=== PATIENT | male | born 1950 | race American Indian/Alaskan Native ===

== ENCOUNTER 2016-05-05 20:17 | Inpatient (IN) | payer MEDICARE, OTHER ==
[2016-05-05] MEDS ORDERED: TYLENOL PO ONE (20:47)
--- NOTE | 2016-05-05 20:47 | Emergency Department Report ---
Chief Complaint: Dyspnea/Respdistress Stated Complaint: WEAKNESS/SOB Time Seen by Provider: 05/05/16 20:46 - HPI History of Present Illness: 65 year old male presents with cough for 2 weeks. states now has a fever and doesnt feel well. denies cp or SOB. - Exam Vital Signs: Vital Signs 05/05/16 20:39 Temperature 102.3 F H Pulse Rate 112 H Respiratory 24 Rate Blood Pressure 117/76 O2 Sat by Pulse 92 Oximetry Physical Exam: patient appears distressed tachycardic and elevated temp lungs CTA RRR MSE screening note: Focused history and physical exam performed. Due to findings the following was ordered: ED Disposition for MSE Condition: Stable
[2016-05-05 21:32] LABS: Hematocrit 30.2 % (35.5-45.6); Hemoglobin 9.8 gm/dl (11.8-15.2); Mean Corpuscular HGB Conc 32 % (32-34); Mean Corpuscular Volume 80 fl (84-94); Platelet Count 453 K/mm3 (140-440); Red Blood Count 3.79 M/mm3 (3.65-5.03); Red Cell Distribution Width 16.3 % (13.2-15.2); White Blood Count 18.4 K/mm3 (4.5-11.0)
[2016-05-05 21:43] LABS: Mean Corpuscular Hemoglobin 26 pg (28-32)
[2016-05-05 21:49] LABS: Alanine Aminotransferase 32 units/L (7-56); Albumin 3.1 g/dL (3.9-5); Albumin/Globulin Ratio 0.9 %; Alkaline Phosphatase 99 units/L (35-129); Anion Gap 21 mmol/L; BUN/Creatinine Ratio 15.83; Bilirubin,Total 0.9 mg/dL (0.1-1.2); Blood Urea Nitrogen 19 mg/dL (9-20); Calcium 8.6 mg/dL (8.4-10.2); Carbon Dioxide 20 mmol/L (22-30); Chloride 96.2 mmol/L (98-107); Glucose 161 mg/dL (75-100); Potassium 4.2 mmol/L (3.6-5.0); Sodium 133 mmol/L (137-145); Total Protein 6.7 g/dL (6.3-8.2)
[2016-05-05 22:17] LABS: Basophils % (Manual) 0 % (0.0-1.8); Blastocytes % (Manual) 0 %; Eosinophils % (Manual) 0 % (0.0-4.3)
[2016-05-05 22:18] LABS: Elliptocytes Rare; Microcytosis Rare; Platelet Estimate Consistent w Auto
[2016-05-05 22:19] LABS: Anisocytosis 1+; Diff Status Complete
--- NOTE | 2016-05-06 09:19 | XRay Report ---
PA and lateral chest: Comparison is made to a prior exam on March 26, 2016. There are new bibasilar opacities with blunting of both costophrenic angles on the current study. The heart is probably normal in size. There is no overt vascular congestion. Impression: Nonspecific bilateral pleural effusions and probable underlying pulmonary atelectasis or consolidation.
[2016-05-06] MEDS ORDERED: LEVAQUIN PO ONE (09:51)
[2016-05-06] MEDS ORDERED: TESSALON PERLES PO ONE (09:52)
--- NOTE | 2016-05-06 09:55 | Emergency Department Report ---
HPI - General Chief Complaint: Dyspnea/Respdistress Time Seen by Provider: 05/06/16 09:49 - HPI HPI: The patient is a 65-year-old male who presents for evaluation of cough and ear filling. The patient reports fever, an intermittently productive cough of clear yellow sputum, moderate severity, associated with moderate in severity dyspnea and generalized weakness, also moderate in severity, both exacerbated with attempted physical activity, improved with rest, and present for the past one day. The patient denies headache, neck pain, chest pain, syncope, hemoptysis, unilateral leg swelling, recent immobilization, history of DVT or PE , recent cancer. ED Past Medical Hx - Past Medical History Hx Hypertension: Yes Hx Diabetes: Yes Hx Arthritis: No - Surgical History Past Surgical History?: No - Social History Smoking Status: Never Smoker Substance Use Type: None - Medications Home Medications: Home Medications Medication Instructions Recorded Confirmed Last Taken Type Glimepiride [Amaryl] 1 mg PO QAM 03/26/16 04/05/16 Unknown History amLODIPine [Norvasc] 5 mg PO DAILY 03/26/16 04/05/16 Unknown History Omeprazole Magnesium [PriLOSEC Otc] 20 mg PO BID #20 tab 04/05/16 Unknown Rx traMADol [Ultram 50 MG tab] 50 mg PO Q6HR PRN #20 tablet 04/05/16 Unknown Rx ED Review of Systems ROS: Stated complaint: WEAKNESS/SOB Other details as noted in HPI Constitutional: denies: fever ENT: denies: throat or neck pain Respiratory: reports cough, shortness of breath Cardiovascular: denies: chest pain Endocrine: denies unexplained weight loss or gain Gastrointestinal: denies: abdominal pain, nausea Genitourinary: denies: dysuria Musculoskeletal: denies: leg swelling Skin: denies: rash Neurological: denies: headache Hematological/Lymphatic: denies: easy bleeding or easy bruising Psych: denies sadness or hopelessness Physical Exam - Physical Exam Vital Signs: Vital Signs 05/05/16 05/06/16 05/06/16 20:39 05:06 09:23 Temperature 102.3 F H 97.8 F Pulse Rate 112 H 75 Respiratory 24 18 20 Rate Blood Pressure 117/76 111/74 Blood Pressure [Left] O2 Sat by Pulse 92 100 96 Oximetry 05/06/16 09:30 Temperature Pulse Rate 80 Respiratory 18 Rate Blood Pressure Blood Pressure 110/70 [Left] O2 Sat by Pulse 98 Oximetry Physical Exam: General: well-nourished, well-developed, no acute distress Head: Normocephalic, atraumatic Eyes: normal sclera ENT: Bilateral nasal congestion is present, Mucous membranes are pale and dry Neck: trachea midline, neck supple, No neck stiffness, no cervical adenopathy Respiratory: Mildly diminished bibasilar breath sounds and rales are present, worse in the right lower lung field, no costal retractions, no respiratory distress Cardio: S1 and S2 present, no murmurs, rubs, gallops, capillary refill is brisk Abdomen: Normoactive bowel sounds, soft abdomen, no rigidity, no guarding or rebound tenderness Musc: No pitting edema Skin: No rash Neuro: no facial drooping, normal speech Psych: Normal affect ED Course Vital Signs 05/05/16 05/06/16 05/06/16 20:39 05:06 09:23 Temperature 102.3 F H 97.8 F Pulse Rate 112 H 75 Respiratory 24 18 20 Rate Blood Pressure 117/76 111/74 Blood Pressure [Left] O2 Sat by Pulse 92 100 96 Oximetry 05/06/16 09:30 Temperature Pulse Rate 80 Respiratory 18 Rate Blood Pressure Blood Pressure 110/70 [Left] O2 Sat by Pulse 98 Oximetry ED Medical Decision Making - Lab Data Result diagrams: 05/05/16 21:09 05/05/16 21:09 - Medical Decision Making The patient was seen and examined by myself. The patient is placed on a teletypesetter monitor and continuous pulse ox. On initial evaluation, the patient was found to be in no distress. Evaluation orders were placed. The patient is given a Tylenol tablet for elevated temperature. The patient is given Tessalon Perles for cough. X-ray of the chest reveals bilateral basilar atelectasis and pleural effusions. Lab results reveal leukocytosis, WBC 18, and otherwise were grossly not concerning. IV Zosyn and by mouth Levaquin is ordered for treatment of pneumonia. The on-call hospitalist service was contacted. They agreed to admit the patient for further treatment and close monitoring. The ED admit order was placed. The patient was admitted in guarded condition. Critical care attestation.: If time is entered above; I have spent that time in minutes in the direct care of this critically ill patient, excluding procedure time. ED Disposition Clinical Impression: Pleural effusion associated with pulmonary infection Sepsis Qualifiers: Sepsis type: sepsis due to unspecified organism Qualified Code(s): A41.9 - Sepsis, unspecified organism Pneumonia Qualifiers: Pneumonia type: due to unspecified organism Laterality: bilateral Lung location : lower lobe of lung Qualified Code(s): J18.9 - Pneumonia, unspecified organism Disposition: OP ADMITTED IP TO THIS HOSP Is pt being admited?: Yes Does the pt Need Aspirin: Yes Condition: Stable Time of Disposition: 09:55
[2016-05-06] MEDS ORDERED: BABY ASPIRIN PO ONE (09:56)
--- NOTE | 2016-05-06 09:59 | Admit Criteria Form ---
Admission Criteria Documentation: PNEUMONIA, COMMUNITY ACQUIRED Clinical Indications for Admission to Inpatient Care ( Place 'X' for any and all applicable criteria): Admission is indicated for ANY ONE of the following (1)(2)(3): [ ]I. Hypoxemia indicated by ANY ONE of the following: [ ]a) Oxygen saturation less than 90% while breathing room air [ ]b) PO2 less than 60 mm Hg (8.0 kPa) while breathing room air [ ]c) Chronic lung disease with significant deterioration from baseline oxygenation [ ]II. Appropriate diagnostic testing and treatment unavailable in outpatient or recovery facility (eg,testing or infection control measures unavailable(10) [ ]III. Moderate-risk or high-risk category patients (Pneumonia Severity Index (PSI) class IV or V, or CURB-65 score of 3 or greater). [ ]IV. Outpatient treatment failure as indicated by ANY ONE of the following(9) : [ ]a) Failure to respond to antibiotic (eg, resistant organism) [ ]b) Clinically significant adverse effects from medication (eg, vomiting) [ ]c) Complications of pneumonia (eg, empyema, bacteremia) [ ]d) Significant worsening of comorbid cond necessitating inpatient care (eg, chronic heart failure) [ ]V. Intermediate-risk category patients (eg, PSI class III or CURB-65 score 2) who do not improve with initial therapy and observation. [ ]. Immunocompromised patients (eg, AIDS, chronic steroid use) at moderate or high risk based on clinical evaluation. [X ]VII. Complicated pleural effusions (eg, exudative, loculated) [ ]VIII.Hemodynamic instability [ ] IX. Altered mental status that is severe or persistent. [ ]X. Dehydration that is severe or persistent. [ ]XI. Bacteremia [ ]XII. Respiratory finding (eg. tachypnea) that do not respond to outpatient or observation care treatment Extended stay beyond goal length of stay may be needed for (20) [ ]a) Unclear diagnosis [ ]b) Pleural disease [ ]c) Severe pneumonia or treatment failure (25 [ ]d) Respiratory failure (anticipate invasive or noninvasive ventilatory support) [ ]e) Abnormal serum electrolytes (serum Na concentration less than 135 mEq/L (mmol/L) (32)(33) [ ]f) Clinically significant comorbid illness (eg, heart failure, atrial fibrillation with rapid heart rate, alcohol withdrawal, renal insufficiency)(34)(35) [ ]g) Comorbid acute exacerbation of COPD(36) [ ]h) Concomitant diagnosis of malignancy that may be associated with malnutrition, immunologic impairment, or bronchial obstruction. [ ]i) Concomitant altered mental status [ ]j) Culture-identified Gram-negative or antibiotic-resistant organism (eg, Pseudomonas, methicillin-resistant Staphylococcus aureus)(30) [ ]k) Healthcare-associated pneumonia The original [employer] content created by [employer] has been revised. The portions of the content which have been revised are identified through the use of italic text or in bold, and [facility] has neither reviewed nor approved the modified material. All other unmodified content is copyright [employer]. Please see references footnoted in the original [employer] [facility] edition 2016 Admission Criteria Met: Yes
[2016-05-06] MEDS ORDERED: ULTRAM PO PRN (11:01)
[2016-05-06] MEDS ORDERED: TYLENOL PO PRN (11:06)
[2016-05-06] MEDS ORDERED: AMBIEN PO PRN (11:06)
[2016-05-06] MEDS ORDERED: ROBITUSSIN DM PO PRN (11:06)
--- NOTE | 2016-05-06 11:06 | History and Physical Report ---
History of Present Illness Date of examination: 05/06/16 Date of admission: 05/06/16 Chief complaint: Worsening shortness of breath and fever for the last 2 days History of present illness: Very pleasant 65-year-old -[place] male patient with significant past medical history of hypertension type 2 diabetes mellitus presented to the emergency room with worsening shortness of breath and cough as well as fever, nights chest pain or palpitation Low-grade fever patient did not measure it, cough associated with whitish sputum no hemoptysis or hematemesis Patient denies any nausea vomiting or abdominal pain denies any urinary symptoms Patient had never had similar symptoms Initial workup, Patient was febrile MAXIMUM TEMPERATURE 102F, leukocytosis Chest x-ray; nonspecific bilateral pleural effusions with underlying atelectasis versus consolidation Past History Past Medical History: diabetes, hypertension Past Surgical History: No surgical history (was significant past surgical history) Social history: lives with family, full code. denies: smoking, alcohol abuse, prescription drug abuse Family history: hypertension Medications and Allergies Allergies Allergy/AdvReac Type Severity Reaction Status Date / Time No Known Allergies Allergy Verified 03/26/16 11:53 Home Medications Medication Instructions Recorded Confirmed Last Taken Type Glimepiride [Amaryl] 1 mg PO QAM 03/26/16 05/06/16 Unknown History amLODIPine [Norvasc] 5 mg PO DAILY 03/26/16 05/06/16 Unknown History Omeprazole Magnesium [PriLOSEC Otc] 20 mg PO BID #20 tab 04/05/16 05/06/16 Unknown Rx traMADol [Ultram 50 MG tab] 50 mg PO Q6HR PRN #20 tablet 04/05/16 05/06/16 Unknown Rx Active Meds: Active Medications Amlodipine Besylate (Norvasc) 5 mg PO DAILY MILE Piperacillin Sod/Tazobactam Sod (Zosyn/Ns 3.375gm/50ml) 50 mls @ 100 mls/hr IV Q6HR MILE Levofloxacin/Dextrose (Levaquin 750mg/150ml) 150 mls @ 100 mls/hr IV Q24HR MILE PRN Reason: Protocol Insulin Aspart (Novolog) 0 units SUB-Q ACHS MILE PRN Reason: Protocol Miscellaneous Medication (Glimepiride [Amaryl]) 1 mg PO QAM MILE Tramadol HCl (Ultram) 50 mg PO Q6HR PRN PRN Reason: Pain Review of Systems Constitutional: fever, no weight loss, no weight gain Ears, nose, mouth and throat: no nasal congestion, no nasal discharge Cardiovascular: shortness of breath, no chest pain, no orthopnea Respiratory: cough with sputum, shortness of breath, no hemoptysis Gastrointestinal: no abdominal pain, no nausea, no vomiting Genitourinary Male: no dysuria, no hematuria Musculoskeletal: no myalgias, no arthritis Integumentary: no rash, no lesions Neurological: no weakness, no tingling, no seizures, no syncope Psychiatric: no anxiety, no depression Endocrine: no cold intolerance, no heat intolerance, no polydipsia, no polyuria Hematologic/Lymphatic: no easy bruising, no easy bleeding Allergic/Immunologic: no urticaria, no allergic rhinitis Exam - Constitutional Vitals: Temp Pulse Resp BP Pulse Ox 97.8 F 80 18 110/70 98 05/06/16 05:06 05/06/16 09:30 05/06/16 09:30 05/06/16 09:30 05/06/16 09:30 General appearance: Present: mild distress, well-nourished - EENT Eyes: Present: PERRL, EOM intact - Neck Neck: Present: supple, normal ROM - Respiratory Respiratory effort: normal Respiratory: bilateral: diminished, negative: rales, rhonchi, wheezing - Cardiovascular Rhythm: regular Heart Sounds: Present: S1 & S2 - Extremities Extremities: no ischemia, pulses intact, pulses symmetrical Peripheral Pulses: within normal limits - Abdominal General gastrointestinal: Present: soft, non-tender, non-distended, normal bowel sounds - Integumentary Integumentary: Present: clear, warm - Musculoskeletal Musculoskeletal: strength equal bilaterally - Psychiatric Psychiatric: appropriate mood/affect, cooperative - Neurologic Neurologic: CNII-XII intact, moves all extremities Results - Labs CBC & Chem 7: 05/05/16 21:09 05/05/16 21: Labs: Abnormal lab results 05/05/16 05/05/16 Range/Units 21: 21: WBC 18.4 H (4.5-11.0) K/mm3 Hgb 9.8 L (11.8-15.2) gm/dl Hct 30.2 L (35.5-45.6) % MCV 80 L (84-94) fl MCH 26 L (28-32) pg RDW 16.3 H (13.2-15.2) % Plt Count 453 H (140-440) K/mm3 Seg Neuts % (Manual) 94.0 H (40.0-70.0) % Lymphocytes % (Manual) 5.0 L (13.4-35.0) % Seg Neutrophils # Man 17.3 H (1.8-7.7) K/mm3 Lymphocytes # (Manual) 0.9 L (1.2-5.4) K/mm3 Sodium 133 L (137-145) mmol/L Chloride 96.2 L (98-107) mmol/L Carbon Dioxide 20 L (22-30) mmol/L Glucose 161 H (75-100) mg/dL Albumin 3.1 L (3.9-5) g/dL Assessment and Plan --Febrile dizziness/secondary to sepsis Antipyretics, IV fluids, supportive care Blood cultures urine cultures empiric antibiotics --Possible community-acquired pneumonia/atelectasis IV antibiotics, nebulizers as needed, IV fluids and cough medicine Blood and sputum cultures, consider pulmonary evaluation if no improvement --Hypertension Moderate control, resume home antihypertensives And when necessary medications --Type 2 diabetes mellitus Accu-Chek sliding scale coverage and ADA diet Oral hypoglycemics as needed -DVT prophylaxis with Lovenox --Full CODE STATUS -We'll closely monitor the patient and adjust the management as needed Disposition possible discharge in 1-2 days if stable Plan of care discussed with the patient as well as his nurse
[2016-05-06] MEDS: ZOSYN/NS 3.375GM/50ML 50 ML IV SCH ×2 (11:50→18:17)
[2016-05-06] MEDS: NOVOLOG SUB-Q SCH ×3 (12:05→23:00)
[2016-05-06] MEDS: PEPCID PO SCH (23:00)
[2016-05-06] MEDS: LOVENOX SUB-Q SCH (23:00)
[2016-05-07] MEDS: ZOSYN/NS 3.375GM/50ML 50 ML IV SCH ×4 (00:01→18:51)
[2016-05-07 05:24] LABS: Basophils % (Auto) 0.3 % (0.0-1.8); Eosinophils % (Auto) 0.8 % (0.0-4.3); Hematocrit 28.7 % (35.5-45.6); Hemoglobin 9.3 gm/dl (11.8-15.2); Mean Corpuscular HGB Conc 32 % (32-34); Mean Corpuscular Volume 80 fl (84-94); Platelet Count 457 K/mm3 (140-440); Red Blood Count 3.58 M/mm3 (3.65-5.03); Red Cell Distribution Width 16.5 % (13.2-15.2); White Blood Count 15.3 K/mm3 (4.5-11.0)
[2016-05-07 05:35] LABS: Anion Gap 17 mmol/L; Blood Urea Nitrogen 15 mg/dL (9-20); Calcium 8.8 mg/dL (8.4-10.2); Carbon Dioxide 24 mmol/L (22-30); Chloride 101.8 mmol/L (98-107); Glucose 90 mg/dL (75-100); Magnesium 2.1 mg/dL (1.7-2.3); Potassium 4.2 mmol/L (3.6-5.0); Sodium 139 mmol/L (137-145)
[2016-05-07 05:44] LABS: Mean Corpuscular Hemoglobin 26 pg (28-32)
[2016-05-07] MEDS: AMARYL PO SCH (08:58)
[2016-05-07] MEDS: NOVOLOG SUB-Q SCH ×4 (09:43→22:02)
[2016-05-07] MEDS: LEVAQUIN 750MG/150ML 150 ML IV SCH (09:44)
[2016-05-07] MEDS: NORVASC PO SCH (09:44)
[2016-05-07] MEDS: PEPCID PO SCH ×2 (09:44→22:02)
[2016-05-07] MEDS ORDERED: NON-FORMULARY (Glimepiride [Amaryl] 1 MG) PO SCH (10:00)
[2016-05-07] MEDS ORDERED: FLUARIX QUAD 2016-2017(36 MOS+) IM ONE (12:00)
[2016-05-07] MEDS ORDERED: PNEUMOVAX 23 IM ONE (12:00)
--- NOTE | 2016-05-07 19:17 | Progress Note ---
Hospitalist Physical - Constitutional Vitals: Temp Pulse Resp BP Pulse Ox 98.4 F 85 18 110/71 99 05/07/16 15:32 05/07/16 15:32 05/07/16 15:32 05/07/16 15:32 05/07/16 15:32 General appearance: Present: mild distress, well-nourished Results - Labs CBC & Chem 7: 05/07/16 04:57 05/07/16 04:57 Labs: Laboratory Last Values WBC 15.3 K/mm3 (4.5-11.0) H 05/07/16 04:57 RBC 3.58 M/mm3 (3.65-5.03) L 05/07/16 04:57 Hgb 9.3 gm/dl (11.8-15.2) L 05/07/16 04:57 Hct 28.7 % (35.5-45.6) L 05/07/16 04:57 MCV 80 fl (84-94) L 05/07/16 04:57 MCH 26 pg (28-32) L 05/07/16 04:57 MCHC 32 % (32-34) 05/07/16 04:57 RDW 16.5 % (13.2-15.2) H 05/07/16 04:57 Plt Count 457 K/mm3 (140-440) H 05/07/16 04:57 Lymph % (Auto) 16.8 % (13.4-35.0) 05/07/16 04:57 [place] % (Auto) 9.6 % (0.0-7.3) H 05/07/16 04:57 Eos % (Auto) 0.8 % (0.0-4.3) 05/07/16 04:57 Baso % (Auto) 0.3 % (0.0-1.8) 05/07/16 04:57 Lymph # 2.6 K/mm3 (1.2-5.4) 05/07/16 04:57 Treasure # 1.5 K/mm3 (0.0-0.8) H 05/07/16 04:57 Eos # 0.1 K/mm3 (0.0-0.4) 05/07/16 04:57 Baso # 0.1 K/mm3 (0.0-0.1) 05/07/16 04:57 Add Manual Diff Complete 05/05/16 21:09 Total Counted 100 05/05/16 21:09 Seg Neutrophils % 72.5 % (40.0-70.0) H 05/07/16 04:57 Seg Neuts % (Manual) 94.0 % (40.0-70.0) H 05/05/16 21:09 Band Neutrophils % 0 % 05/05/16 21:09 Lymphocytes % (Manual) 5.0 % (13.4-35.0) L 05/05/16 21:09 Reactive Lymphs % (Man) 0 % 05/05/16 21:09 Monocytes % (Manual) 1.0 % (0.0-7.3) 05/05/16 21:09 Eosinophils % (Manual) 0 % (0.0-4.3) 05/05/16 21:09 Basophils % (Manual) 0 % (0.0-1.8) 05/05/16 21:09 Metamyelocytes % 0 % 05/05/16 21:09 Myelocytes % 0 % 05/05/16 21:09 Promyelocytes % 0 % 05/05/16 21:09 Blast Cells % 0 % 05/05/16 21:09 Nucleated RBC % Not Reportable 05/05/16 21:09 Seg Neutrophils # 11.0 K/mm3 (1.8-7.7) H 05/07/16 04:57 Seg Neutrophils # Man 17.3 K/mm3 (1.8-7.7) H 05/05/16 21:09 Band Neutrophils # 0.0 K/mm3 05/05/16 21:09 Lymphocytes # (Manual) 0.9 K/mm3 (1.2-5.4) L 05/05/16 21:09 Abs React Lymphs (Man) 0.0 K/mm3 05/05/16 21:09 Monocytes # (Manual) 0.2 K/mm3 (0.0-0.8) 05/05/16 21:09 Eosinophils # (Manual) 0.0 K/mm3 (0.0-0.4) 05/05/16 21:09 Basophils # (Manual) 0.0 K/mm3 (0.0-0.1) 05/05/16 21:09 Metamyelocytes # 0.0 K/mm3 05/05/16 21:09 Myelocytes # 0.0 K/mm3 05/05/16 21:09 Promyelocytes # 0.0 K/mm3 05/05/16 21:09 Blast Cells # 0.0 K/mm3 05/05/16 21:09 WBC Morphology Not Reportable 05/05/16 21:09 Hypersegmented Neuts Not Reportable 05/05/16 21:09 Hyposegmented Neuts Not Reportable 05/05/16 21:09 Hypogranular Neuts Not Reportable 05/05/16 21:09 Smudge Cells Not Reportable 05/05/16 21:09 Toxic Granulation Not Reportable 05/05/16 21:09 Toxic Vacuolation Not Reportable 05/05/16 21:09 Dohle Bodies Not Reportable 05/05/16 21:09 Pelger-Huet Anomaly Not Reportable 05/05/16 21:09 Sarah Rods Not Reportable 05/05/16 21:09 Platelet Estimate Consistent w auto 05/05/16 21:09 Clumped Platelets Not Reportable 05/05/16 21:09 Plt Clumps, EDTA Not Reportable 05/05/16 21:09 Large Platelets Not Reportable 05/05/16 21:09 Giant Platelets Not Reportable 05/05/16 21:09 Platelet Satelliting Not Reportable 05/05/16 21:09 Plt Morphology Comment Not Reportable 05/05/16 21:09 RBC Morphology Not Reportable 05/05/16 21:09 Dimorphic RBCs Not Reportable 05/05/16 21:09 Polychromasia Not Reportable 05/05/16 21:09 Hypochromasia Not Reportable 05/05/16 21:09 Poikilocytosis Not Reportable 05/05/16 21:09 Anisocytosis 1+ 05/05/16 21:09 Microcytosis Rare 05/05/16 21:09 Macrocytosis Not Reportable 05/05/16 21:09 Spherocytes Not Reportable 05/05/16 21:09 Pappenheimer Bodies Not Reportable 05/05/16 21:09 Sickle Cells Not Reportable 05/05/16 21:09 Target Cells Not Reportable 05/05/16 21:09 Tear Drop Cells Not Reportable 05/05/16 21:09 Ovalocytes Not Reportable 05/05/16 21:09 Helmet Cells Not Reportable 05/05/16 21:09 [place] Bodies Not Reportable 05/05/16 21:09 [place] Rings Not Reportable 05/05/16 21:09 [place] Cells Not Reportable 05/05/16 21:09 Bite Cells Not Reportable 05/05/16 21:09 Crenated Cell Not Reportable 05/05/16 21:09 Elliptocytes Rare 05/05/16 21:09 Acanthocytes (Spur) Not Reportable 05/05/16 21:09 Rouleaux Not Reportable 05/05/16 21:09 Hemoglobin C Crystals Not Reportable 05/05/16 21:09 Schistocytes Not Reportable 05/05/16 21:09 Malaria parasites Not Reportable 05/05/16 21:09 [place] Bodies Not Reportable 05/05/16 21:09 Hem Pathologist Commnt No 05/05/16 21:09 Sodium 139 mmol/L (137-145) 05/07/16 04:57 Potassium 4.2 mmol/L (3.6-5.0) 05/07/16 04:57 Chloride 101.8 mmol/L (98-107) 05/07/16 04:57 Carbon Dioxide 24 mmol/L (22-30) 05/07/16 04:57 Anion Gap 17 mmol/L 05/07/16 04:57 BUN 15 mg/dL (9-20) 05/07/16 04:57 Creatinine 1.2 mg/dL (0.8-1.5) 05/07/16 04:57 Estimated GFR > 60 ml/min 05/07/16 04:57 BUN/Creatinine Ratio 12.50 % 05/07/16 04:57 Glucose 90 mg/dL (75-100) 05/07/16 04:57 POC Glucose 112 (70-105) H 05/07/16 15:24 Hemoglobin A1c 5.6 % (4-6) 05/06/16 11:12 Lactic Acid 1.3 mmol/L (0.7-2.0) 05/06/16 10:04 Calcium 8.8 mg/dL (8.4-10.2) 05/07/16 04:57 Magnesium 2.1 mg/dL (1.7-2.3) 05/07/16 04:57 Total Bilirubin 0.9 mg/dL (0.1-1.2) 05/05/16 21:09 AST 28 units/L (5-40) 05/05/16 21:09 ALT 32 units/L (7-56) 05/05/16 21:09 Alkaline Phosphatase 99 units/L (35-129) 05/05/16 21:09 Total Protein 6.7 g/dL (6.3-8.2) 05/05/16 21:09 Albumin 3.1 g/dL (3.9-5) L 05/05/16 21:09 Albumin/Globulin Ratio 0.9 % 05/05/16 21:09
[2016-05-07] MEDS: LOVENOX SUB-Q SCH (22:05)
[2016-05-08] MEDS: ZOSYN/NS 3.375GM/50ML 50 ML IV SCH ×2 (00:54→05:59)
[2016-05-08] MEDS: NOVOLOG SUB-Q SCH ×4 (07:30→22:44)
[2016-05-08] MEDS: AMARYL PO SCH (09:23)
[2016-05-08] MEDS: LEVAQUIN 750MG/150ML 150 ML IV SCH (11:00)
[2016-05-08] MEDS: PEPCID PO SCH ×2 (11:00→22:43)
[2016-05-08] MEDS: NORVASC PO SCH (11:02)
[2016-05-08 11:05] LABS: Basophils % (Auto) 0.6 % (0.0-1.8); Eosinophils % (Auto) 2.9 % (0.0-4.3); Hematocrit 31.1 % (35.5-45.6); Hemoglobin 10.1 gm/dl (11.8-15.2); Mean Corpuscular HGB Conc 32 % (32-34); Mean Corpuscular Volume 80 fl (84-94); Platelet Count 500 K/mm3 (140-440); Red Blood Count 3.89 M/mm3 (3.65-5.03); Red Cell Distribution Width 16.6 % (13.2-15.2); White Blood Count 13.4 K/mm3 (4.5-11.0)
[2016-05-08 11:06] LABS: Mean Corpuscular Hemoglobin 26 pg (28-32)
--- NOTE | 2016-05-08 18:53 | Progress Note ---
Hospitalist Physical - Constitutional Vitals: Temp Pulse Resp BP Pulse Ox 98.7 F 87 20 116/74 98 05/08/16 16:40 05/08/16 16:40 05/08/16 16:40 05/08/16 16:40 05/08/16 16:40 General appearance: Present: mild distress, well-nourished Results - Labs CBC & Chem 7: 05/08/16 10:53 05/07/16 04:57 Labs: Laboratory Last Values WBC 13.4 K/mm3 (4.5-11.0) H 05/08/16 10:53 RBC 3.89 M/mm3 (3.65-5.03) 05/08/16 10:53 Hgb 10.1 gm/dl (11.8-15.2) L 05/08/16 10:53 Hct 31.1 % (35.5-45.6) L 05/08/16 10:53 MCV 80 fl (84-94) L 05/08/16 10:53 MCH 26 pg (28-32) L 05/08/16 10:53 MCHC 32 % (32-34) 05/08/16 10:53 RDW 16.6 % (13.2-15.2) H 05/08/16 10:53 Plt Count 500 K/mm3 (140-440) H 05/08/16 10:53 Lymph % (Auto) 16.6 % (13.4-35.0) 05/08/16 10:53 Ashley % (Auto) 8.0 % (0.0-7.3) H 05/08/16 10:53 Eos % (Auto) 2.9 % (0.0-4.3) 05/08/16 10:53 Baso % (Auto) 0.6 % (0.0-1.8) 05/08/16 10:53 Lymph # 2.2 K/mm3 (1.2-5.4) 05/08/16 10:53 Ashley # 1.1 K/mm3 (0.0-0.8) H 05/08/16 10:53 Eos # 0.4 K/mm3 (0.0-0.4) 05/08/16 10:53 Baso # 0.1 K/mm3 (0.0-0.1) 05/08/16 10:53 Add Manual Diff Complete 05/05/16 21:09 Total Counted 100 05/05/16 21:09 Seg Neutrophils % 71.9 % (40.0-70.0) H 05/08/16 10:53 Seg Neuts % (Manual) 94.0 % (40.0-70.0) H 05/05/16 21:09 Band Neutrophils % 0 % 05/05/16 21:09 Lymphocytes % (Manual) 5.0 % (13.4-35.0) L 05/05/16 21:09 Reactive Lymphs % (Man) 0 % 05/05/16 21:09 Monocytes % (Manual) 1.0 % (0.0-7.3) 05/05/16 21:09 Eosinophils % (Manual) 0 % (0.0-4.3) 05/05/16 21:09 Basophils % (Manual) 0 % (0.0-1.8) 05/05/16 21:09 Metamyelocytes % 0 % 05/05/16 21:09 Myelocytes % 0 % 05/05/16 21:09 Promyelocytes % 0 % 05/05/16 21:09 Blast Cells % 0 % 05/05/16 21:09 Nucleated RBC % Not Reportable 05/05/16 21:09 Seg Neutrophils # 9.6 K/mm3 (1.8-7.7) H 05/08/16 10:53 Seg Neutrophils # Man 17.3 K/mm3 (1.8-7.7) H 05/05/16 21:09 Band Neutrophils # 0.0 K/mm3 05/05/16 21:09 Lymphocytes # (Manual) 0.9 K/mm3 (1.2-5.4) L 05/05/16 21:09 Abs React Lymphs (Man) 0.0 K/mm3 05/05/16 21:09 Monocytes # (Manual) 0.2 K/mm3 (0.0-0.8) 05/05/16 21:09 Eosinophils # (Manual) 0.0 K/mm3 (0.0-0.4) 05/05/16 21:09 Basophils # (Manual) 0.0 K/mm3 (0.0-0.1) 05/05/16 21:09 Metamyelocytes # 0.0 K/mm3 05/05/16 21:09 Myelocytes # 0.0 K/mm3 05/05/16 21:09 Promyelocytes # 0.0 K/mm3 05/05/16 21:09 Blast Cells # 0.0 K/mm3 05/05/16 21:09 WBC Morphology Not Reportable 05/05/16 21:09 Hypersegmented Neuts Not Reportable 05/05/16 21:09 Hyposegmented Neuts Not Reportable 05/05/16 21:09 Hypogranular Neuts Not Reportable 05/05/16 21:09 Smudge Cells Not Reportable 05/05/16 21:09 Toxic Granulation Not Reportable 05/05/16 21:09 Toxic Vacuolation Not Reportable 05/05/16 21:09 Dohle Bodies Not Reportable 05/05/16 21:09 Pelger-Huet Anomaly Not Reportable 05/05/16 21:09 Sarah Rods Not Reportable 05/05/16 21:09 Platelet Estimate Consistent w auto 05/05/16 21:09 Clumped Platelets Not Reportable 05/05/16 21:09 Plt Clumps, EDTA Not Reportable 05/05/16 21:09 Large Platelets Not Reportable 05/05/16 21:09 Giant Platelets Not Reportable 05/05/16 21:09 Platelet Satelliting Not Reportable 05/05/16 21:09 Plt Morphology Comment Not Reportable 05/05/16 21:09 RBC Morphology Not Reportable 05/05/16 21:09 Dimorphic RBCs Not Reportable 05/05/16 21:09 Polychromasia Not Reportable 05/05/16 21:09 Hypochromasia Not Reportable 05/05/16 21:09 Poikilocytosis Not Reportable 05/05/16 21:09 Anisocytosis 1+ 05/05/16 21:09 Microcytosis Rare 05/05/16 21:09 Macrocytosis Not Reportable 05/05/16 21:09 Spherocytes Not Reportable 05/05/16 21:09 Pappenheimer Bodies Not Reportable 05/05/16 21:09 Sickle Cells Not Reportable 05/05/16 21:09 Target Cells Not Reportable 05/05/16 21:09 Tear Drop Cells Not Reportable 05/05/16 21:09 Ovalocytes Not Reportable 05/05/16 21:09 Helmet Cells Not Reportable 05/05/16 21:09 [place] Bodies Not Reportable 05/05/16 21:09 [place] Rings Not Reportable 05/05/16 21:09 Malina Cells Not Reportable 05/05/16 21:09 Bite Cells Not Reportable 05/05/16 21:09 Crenated Cell Not Reportable 05/05/16 21:09 Elliptocytes Rare 05/05/16 21:09 Acanthocytes (Spur) Not Reportable 05/05/16 21:09 Rouleaux Not Reportable 05/05/16 21:09 Hemoglobin C Crystals Not Reportable 05/05/16 21:09 Schistocytes Not Reportable 05/05/16 21:09 Malaria parasites Not Reportable 05/05/16 21:09 Sekou Bodies Not Reportable 05/05/16 21:09 Hem Pathologist Commnt No 05/05/16 21:09 Sodium 139 mmol/L (137-145) 05/07/16 04:57 Potassium 4.2 mmol/L (3.6-5.0) 05/07/16 04:57 Chloride 101.8 mmol/L (98-107) 05/07/16 04:57 Carbon Dioxide 24 mmol/L (22-30) 05/07/16 04:57 Anion Gap 17 mmol/L 05/07/16 04:57 BUN 15 mg/dL (9-20) 05/07/16 04:57 Creatinine 1.2 mg/dL (0.8-1.5) 05/07/16 04:57 Estimated GFR > 60 ml/min 05/07/16 04:57 BUN/Creatinine Ratio 12.50 % 05/07/16 04:57 Glucose 90 mg/dL (75-100) 05/07/16 04:57 POC Glucose 103 (70-105) 05/08/16 16:29 Hemoglobin A1c 5.6 % (4-6) 05/06/16 11:12 Lactic Acid 1.3 mmol/L (0.7-2.0) 05/06/16 10:04 Calcium 8.8 mg/dL (8.4-10.2) 05/07/16 04:57 Magnesium 2.1 mg/dL (1.7-2.3) 05/07/16 04:57 Total Bilirubin 0.9 mg/dL (0.1-1.2) 05/05/16 21:09 AST 28 units/L (5-40) 05/05/16 21:09 ALT 32 units/L (7-56) 05/05/16 21:09 Alkaline Phosphatase 99 units/L (35-129) 05/05/16 21:09 Total Protein 6.7 g/dL (6.3-8.2) 05/05/16 21:09 Albumin 3.1 g/dL (3.9-5) L 05/05/16 21:09 Albumin/Globulin Ratio 0.9 % 05/05/16 21:09
[2016-05-08] MEDS: LOVENOX SUB-Q SCH (22:43)
[2016-05-09] MEDS: NOVOLOG SUB-Q SCH ×3 (08:24→16:45)
[2016-05-09] MEDS: NORVASC PO SCH (09:23)
[2016-05-09] MEDS: AMARYL PO SCH (09:24)
[2016-05-09] MEDS: PEPCID PO SCH ×2 (09:24→22:58)
[2016-05-09] MEDS: LEVAQUIN PO SCH (09:24)
--- NOTE | 2016-05-09 20:26 | Progress Note ---
Assessment and Plan Assessment and plan: 1. Bacteremia Blood cultures 2/2 positive for Streptococcus Repeat blood cultures today History Interval history: Doing well, no complaints Hospitalist Physical - Constitutional Vitals: Temp Pulse Resp BP Pulse Ox 98.7 F 92 H 14 125/78 99 05/09/16 16:35 05/09/16 16:35 05/09/16 16:35 05/09/16 16:35 05/09/16 16:35 General appearance: Present: mild distress, well-nourished Results - Labs CBC & Chem 7: 05/08/16 10:53 05/07/16 04:57 Labs: Laboratory Last Values WBC 13.4 K/mm3 (4.5-11.0) H 05/08/16 10:53 RBC 3.89 M/mm3 (3.65-5.03) 05/08/16 10:53 Hgb 10.1 gm/dl (11.8-15.2) L 05/08/16 10:53 Hct 31.1 % (35.5-45.6) L 05/08/16 10:53 MCV 80 fl (84-94) L 05/08/16 10:53 MCH 26 pg (28-32) L 05/08/16 10:53 MCHC 32 % (32-34) 05/08/16 10:53 RDW 16.6 % (13.2-15.2) H 05/08/16 10:53 Plt Count 500 K/mm3 (140-440) H 05/08/16 10:53 Lymph % (Auto) 16.6 % (13.4-35.0) 05/08/16 10:53 Yell % (Auto) 8.0 % (0.0-7.3) H 05/08/16 10:53 Eos % (Auto) 2.9 % (0.0-4.3) 05/08/16 10:53 Baso % (Auto) 0.6 % (0.0-1.8) 05/08/16 10:53 Lymph # 2.2 K/mm3 (1.2-5.4) 05/08/16 10:53 Yell # 1.1 K/mm3 (0.0-0.8) H 05/08/16 10:53 Eos # 0.4 K/mm3 (0.0-0.4) 05/08/16 10:53 Baso # 0.1 K/mm3 (0.0-0.1) 05/08/16 10:53 Add Manual Diff Complete 05/05/16 21:09 Total Counted 100 05/05/16 21:09 Seg Neutrophils % 71.9 % (40.0-70.0) H 05/08/16 10:53 Seg Neuts % (Manual) 94.0 % (40.0-70.0) H 05/05/16 21:09 Band Neutrophils % 0 % 05/05/16 21:09 Lymphocytes % (Manual) 5.0 % (13.4-35.0) L 05/05/16 21:09 Reactive Lymphs % (Man) 0 % 05/05/16 21:09 Monocytes % (Manual) 1.0 % (0.0-7.3) 05/05/16 21:09 Eosinophils % (Manual) 0 % (0.0-4.3) 05/05/16 21:09 Basophils % (Manual) 0 % (0.0-1.8) 05/05/16 21:09 Metamyelocytes % 0 % 05/05/16 21:09 Myelocytes % 0 % 05/05/16 21:09 Promyelocytes % 0 % 05/05/16 21:09 Blast Cells % 0 % 05/05/16 21:09 Nucleated RBC % Not Reportable 05/05/16 21:09 Seg Neutrophils # 9.6 K/mm3 (1.8-7.7) H 05/08/16 10:53 Seg Neutrophils # Man 17.3 K/mm3 (1.8-7.7) H 05/05/16 21:09 Band Neutrophils # 0.0 K/mm3 05/05/16 21:09 Lymphocytes # (Manual) 0.9 K/mm3 (1.2-5.4) L 05/05/16 21:09 Abs React Lymphs (Man) 0.0 K/mm3 05/05/16 21:09 Monocytes # (Manual) 0.2 K/mm3 (0.0-0.8) 05/05/16 21:09 Eosinophils # (Manual) 0.0 K/mm3 (0.0-0.4) 05/05/16 21:09 Basophils # (Manual) 0.0 K/mm3 (0.0-0.1) 05/05/16 21:09 Metamyelocytes # 0.0 K/mm3 05/05/16 21:09 Myelocytes # 0.0 K/mm3 05/05/16 21:09 Promyelocytes # 0.0 K/mm3 05/05/16 21:09 Blast Cells # 0.0 K/mm3 05/05/16 21:09 WBC Morphology Not Reportable 05/05/16 21:09 Hypersegmented Neuts Not Reportable 05/05/16 21:09 Hyposegmented Neuts Not Reportable 05/05/16 21:09 Hypogranular Neuts Not Reportable 05/05/16 21:09 Smudge Cells Not Reportable 05/05/16 21:09 Toxic Granulation Not Reportable 05/05/16 21:09 Toxic Vacuolation Not Reportable 05/05/16 21:09 Dohle Bodies Not Reportable 05/05/16 21:09 Pelger-Huet Anomaly Not Reportable 05/05/16 21:09 Sarah Rods Not Reportable 05/05/16 21:09 Platelet Estimate Consistent w auto 05/05/16 21:09 Clumped Platelets Not Reportable 05/05/16 21:09 Plt Clumps, EDTA Not Reportable 05/05/16 21:09 Large Platelets Not Reportable 05/05/16 21:09 Giant Platelets Not Reportable 05/05/16 21:09 Platelet Satelliting Not Reportable 05/05/16 21:09 Plt Morphology Comment Not Reportable 05/05/16 21:09 RBC Morphology Not Reportable 05/05/16 21:09 Dimorphic RBCs Not Reportable 05/05/16 21:09 Polychromasia Not Reportable 05/05/16 21:09 Hypochromasia Not Reportable 05/05/16 21:09 Poikilocytosis Not Reportable 05/05/16 21:09 Anisocytosis 1+ 05/05/16 21:09 Microcytosis Rare 05/05/16 21:09 Macrocytosis Not Reportable 05/05/16 21:09 Spherocytes Not Reportable 05/05/16 21:09 Pappenheimer Bodies Not Reportable 05/05/16 21:09 Sickle Cells Not Reportable 05/05/16 21:09 Target Cells Not Reportable 05/05/16 21:09 Tear Drop Cells Not Reportable 05/05/16 21:09 Ovalocytes Not Reportable 05/05/16 21:09 Helmet Cells Not Reportable 05/05/16 21:09 [place] Bodies Not Reportable 05/05/16 21:09 [place] Rings Not Reportable 05/05/16 21:09 Malina Cells Not Reportable 05/05/16 21:09 Bite Cells Not Reportable 05/05/16 21:09 Crenated Cell Not Reportable 05/05/16 21:09 Elliptocytes Rare 05/05/16 21:09 Acanthocytes (Spur) Not Reportable 05/05/16 21:09 Rouleaux Not Reportable 05/05/16 21:09 Hemoglobin C Crystals Not Reportable 05/05/16 21:09 Schistocytes Not Reportable 05/05/16 21:09 Malaria parasites Not Reportable 05/05/16 21:09 Sekou Bodies Not Reportable 05/05/16 21:09 Hem Pathologist Commnt No 05/05/16 21:09 Sodium 139 mmol/L (137-145) 05/07/16 04:57 Potassium 4.2 mmol/L (3.6-5.0) 05/07/16 04:57 Chloride 101.8 mmol/L (98-107) 05/07/16 04:57 Carbon Dioxide 24 mmol/L (22-30) 05/07/16 04:57 Anion Gap 17 mmol/L 05/07/16 04:57 BUN 15 mg/dL (9-20) 05/07/16 04:57 Creatinine 1.2 mg/dL (0.8-1.5) 05/07/16 04:57 Estimated GFR > 60 ml/min 05/07/16 04:57 BUN/Creatinine Ratio 12.50 % 05/07/16 04:57 Glucose 90 mg/dL (75-100) 05/07/16 04:57 POC Glucose 81 (70-105) 05/09/16 17:30 Hemoglobin A1c 5.6 % (4-6) 05/06/16 11:12 Lactic Acid 1.3 mmol/L (0.7-2.0) 05/06/16 10:04 Calcium 8.8 mg/dL (8.4-10.2) 05/07/16 04:57 Magnesium 2.1 mg/dL (1.7-2.3) 05/07/16 04:57 Total Bilirubin 0.9 mg/dL (0.1-1.2) 05/05/16 21:09 AST 28 units/L (5-40) 05/05/16 21:09 ALT 32 units/L (7-56) 05/05/16 21:09 Alkaline Phosphatase 99 units/L (35-129) 05/05/16 21:09 Total Protein 6.7 g/dL (6.3-8.2) 05/05/16 21:09 Albumin 3.1 g/dL (3.9-5) L 05/05/16 21:09 Albumin/Globulin Ratio 0.9 % 05/05/16 21:09
[2016-05-09] MEDS: LOVENOX SUB-Q SCH (22:57)
[2016-05-10] MEDS: NOVOLOG SUB-Q SCH ×5 (00:02→21:59)
[2016-05-10 05:11] LABS: Basophils % (Auto) 0.2 % (0.0-1.8); Eosinophils % (Auto) 2.9 % (0.0-4.3); Hematocrit 29.6 % (35.5-45.6); Hemoglobin 9.5 gm/dl (11.8-15.2); Mean Corpuscular HGB Conc 32 % (32-34); Mean Corpuscular Volume 80 fl (84-94); Platelet Count 481 K/mm3 (140-440); Red Cell Distribution Width 16.4 % (13.2-15.2); White Blood Count 12.7 K/mm3 (4.5-11.0)
[2016-05-10 05:13] LABS: Mean Corpuscular Hemoglobin 26 pg (28-32)
[2016-05-10 05:27] LABS: Blood Urea Nitrogen 9 mg/dL (9-20); Calcium 9.1 mg/dL (8.4-10.2); Carbon Dioxide 25 mmol/L (22-30); Chloride 101.2 mmol/L (98-107); Glucose 82 mg/dL (75-100); Potassium 4.3 mmol/L (3.6-5.0); Sodium 137 mmol/L (137-145)
[2016-05-10 05:28] LABS: Anion Gap 15 mmol/L
[2016-05-10] MEDS: AMARYL PO SCH (10:12)
[2016-05-10] MEDS: PEPCID PO SCH ×2 (10:13→21:57)
[2016-05-10] MEDS: NORVASC PO SCH (10:13)
[2016-05-10] MEDS: LEVAQUIN PO SCH (10:13)
--- NOTE | 2016-05-10 18:33 | Progress Note ---
History Interval history: no complaints, feeling well Hospitalist Physical - Constitutional Vitals: Temp Pulse Resp BP Pulse Ox 98.9 F 92 H 20 131/82 99 05/10/16 16:41 05/10/16 16:41 05/10/16 16:41 05/10/16 16:41 05/10/16 08:13 General appearance: Present: mild distress, well-nourished Results - Labs CBC & Chem 7: 05/10/16 04:33 05/10/16 04:33 Labs: Laboratory Last Values WBC 12.7 K/mm3 (4.5-11.0) H 05/10/16 04:33 RBC 3.70 M/mm3 (3.65-5.03) 05/10/16 04:33 Hgb 9.5 gm/dl (11.8-15.2) L 05/10/16 04:33 Hct 29.6 % (35.5-45.6) L 05/10/16 04:33 MCV 80 fl (84-94) L 05/10/16 04:33 MCH 26 pg (28-32) L 05/10/16 04:33 MCHC 32 % (32-34) 05/10/16 04:33 RDW 16.4 % (13.2-15.2) H 05/10/16 04:33 Plt Count 481 K/mm3 (140-440) H 05/10/16 04:33 Lymph % (Auto) 18.3 % (13.4-35.0) 05/10/16 04:33 [place] % (Auto) 6.4 % (0.0-7.3) 05/10/16 04:33 Eos % (Auto) 2.9 % (0.0-4.3) 05/10/16 04:33 Baso % (Auto) 0.2 % (0.0-1.8) 05/10/16 04:33 Lymph # 2.3 K/mm3 (1.2-5.4) 05/10/16 04:33 [place]ley # 0.8 K/mm3 (0.0-0.8) 05/10/16 04:33 Eos # 0.4 K/mm3 (0.0-0.4) 05/10/16 04:33 Baso # 0.0 K/mm3 (0.0-0.1) 05/10/16 04:33 Add Manual Diff Complete 05/05/16 21:09 Total Counted 100 05/05/16 21:09 Seg Neutrophils % 72.2 % (40.0-70.0) H 05/10/16 04:33 Seg Neuts % (Manual) 94.0 % (40.0-70.0) H 05/05/16 21:09 Band Neutrophils % 0 % 05/05/16 21:09 Lymphocytes % (Manual) 5.0 % (13.4-35.0) L 05/05/16 21:09 Reactive Lymphs % (Man) 0 % 05/05/16 21:09 Monocytes % (Manual) 1.0 % (0.0-7.3) 05/05/16 21:09 Eosinophils % (Manual) 0 % (0.0-4.3) 05/05/16 21:09 Basophils % (Manual) 0 % (0.0-1.8) 05/05/16 21:09 Metamyelocytes % 0 % 05/05/16 21:09 Myelocytes % 0 % 05/05/16 21:09 Promyelocytes % 0 % 05/05/16 21:09 Blast Cells % 0 % 05/05/16 21:09 Nucleated RBC % Not Reportable 05/05/16 21:09 Seg Neutrophils # 9.2 K/mm3 (1.8-7.7) H 05/10/16 04:33 Seg Neutrophils # Man 17.3 K/mm3 (1.8-7.7) H 05/05/16 21:09 Band Neutrophils # 0.0 K/mm3 05/05/16 21:09 Lymphocytes # (Manual) 0.9 K/mm3 (1.2-5.4) L 05/05/16 21:09 Abs React Lymphs (Man) 0.0 K/mm3 05/05/16 21:09 Monocytes # (Manual) 0.2 K/mm3 (0.0-0.8) 05/05/16 21:09 Eosinophils # (Manual) 0.0 K/mm3 (0.0-0.4) 05/05/16 21:09 Basophils # (Manual) 0.0 K/mm3 (0.0-0.1) 05/05/16 21:09 Metamyelocytes # 0.0 K/mm3 05/05/16 21:09 Myelocytes # 0.0 K/mm3 05/05/16 21:09 Promyelocytes # 0.0 K/mm3 05/05/16 21:09 Blast Cells # 0.0 K/mm3 05/05/16 21:09 WBC Morphology Not Reportable 05/05/16 21:09 Hypersegmented Neuts Not Reportable 05/05/16 21:09 Hyposegmented Neuts Not Reportable 05/05/16 21:09 Hypogranular Neuts Not Reportable 05/05/16 21:09 Smudge Cells Not Reportable 05/05/16 21:09 Toxic Granulation Not Reportable 05/05/16 21:09 Toxic Vacuolation Not Reportable 05/05/16 21:09 Dohle Bodies Not Reportable 05/05/16 21:09 Pelger-Huet Anomaly Not Reportable 05/05/16 21:09 Sarah Rods Not Reportable 05/05/16 21:09 Platelet Estimate Consistent w auto 05/05/16 21:09 Clumped Platelets Not Reportable 05/05/16 21:09 Plt Clumps, EDTA Not Reportable 05/05/16 21:09 Large Platelets Not Reportable 05/05/16 21:09 Giant Platelets Not Reportable 05/05/16 21:09 Platelet Satelliting Not Reportable 05/05/16 21:09 Plt Morphology Comment Not Reportable 05/05/16 21:09 RBC Morphology Not Reportable 05/05/16 21:09 Dimorphic RBCs Not Reportable 05/05/16 21:09 Polychromasia Not Reportable 05/05/16 21:09 Hypochromasia Not Reportable 05/05/16 21:09 Poikilocytosis Not Reportable 05/05/16 21:09 Anisocytosis 1+ 05/05/16 21:09 Microcytosis Rare 05/05/16 21:09 Macrocytosis Not Reportable 05/05/16 21:09 Spherocytes Not Reportable 05/05/16 21:09 Pappenheimer Bodies Not Reportable 05/05/16 21:09 Sickle Cells Not Reportable 05/05/16 21:09 Target Cells Not Reportable 05/05/16 21:09 Tear Drop Cells Not Reportable 05/05/16 21:09 Ovalocytes Not Reportable 05/05/16 21:09 Helmet Cells Not Reportable 05/05/16 21:09 [place] Bodies Not Reportable 05/05/16 21:09 [place] Rings Not Reportable 05/05/16 21:09 Malina Cells Not Reportable 05/05/16 21:09 Bite Cells Not Reportable 05/05/16 21:09 Crenated Cell Not Reportable 05/05/16 21:09 Elliptocytes Rare 05/05/16 21:09 Acanthocytes (Spur) Not Reportable 05/05/16 21:09 Rouleaux Not Reportable 05/05/16 21:09 Hemoglobin C Crystals Not Reportable 05/05/16 21:09 Schistocytes Not Reportable 05/05/16 21:09 Malaria parasites Not Reportable 05/05/16 21:09 Sekou Bodies Not Reportable 05/05/16 21:09 Hem Pathologist Commnt No 05/05/16 21:09 Sodium 137 mmol/L (137-145) 05/10/16 04:33 Potassium 4.3 mmol/L (3.6-5.0) 05/10/16 04:33 Chloride 101.2 mmol/L (98-107) 05/10/16 04:33 Carbon Dioxide 25 mmol/L (22-30) 05/10/16 04:33 Anion Gap 15 mmol/L 05/10/16 04:33 BUN 9 mg/dL (9-20) 05/10/16 04:33 Creatinine 1.2 mg/dL (0.8-1.5) 05/10/16 04:33 Estimated GFR > 60 ml/min 05/10/16 04:33 BUN/Creatinine Ratio 7.50 % 05/10/16 04:33 Glucose 82 mg/dL (75-100) 05/10/16 04:33 POC Glucose 97 (70-105) 05/10/16 11:46 Hemoglobin A1c 5.6 % (4-6) 05/06/16 11:12 Lactic Acid 1.3 mmol/L (0.7-2.0) 05/06/16 10:04 Calcium 9.1 mg/dL (8.4-10.2) 05/10/16 04:33 Magnesium 2.1 mg/dL (1.7-2.3) 05/07/16 04:57 Total Bilirubin 0.9 mg/dL (0.1-1.2) 05/05/16 21:09 AST 28 units/L (5-40) 05/05/16 21:09 ALT 32 units/L (7-56) 05/05/16 21:09 Alkaline Phosphatase 99 units/L (35-129) 05/05/16 21:09 Total Protein 6.7 g/dL (6.3-8.2) 05/05/16 21:09 Albumin 3.1 g/dL (3.9-5) L 05/05/16 21:09 Albumin/Globulin Ratio 0.9 % 05/05/16 21:09
[2016-05-10] MEDS: LOVENOX SUB-Q SCH (21:57)
[2016-05-11 05:30] LABS: Basophils % (Auto) 0.4 % (0.0-1.8); Eosinophils % (Auto) 2.2 % (0.0-4.3); Hematocrit 29.1 % (35.5-45.6); Hemoglobin 9.4 gm/dl (11.8-15.2); Mean Corpuscular HGB Conc 32 % (32-34); Mean Corpuscular Hemoglobin 26 pg (28-32); Mean Corpuscular Volume 81 fl (84-94); Platelet Count 462 K/mm3 (140-440); Red Blood Count 3.59 M/mm3 (3.65-5.03); Red Cell Distribution Width 16.6 % (13.2-15.2); White Blood Count 12.6 K/mm3 (4.5-11.0)
[2016-05-11] MEDS: AMARYL PO SCH (10:31)
[2016-05-11] MEDS: NORVASC PO SCH (10:32)
[2016-05-11] MEDS: LEVAQUIN PO SCH (10:32)
[2016-05-11] MEDS: NOVOLOG SUB-Q SCH (10:32)
[2016-05-11] MEDS: PEPCID PO SCH (11:25)
--- NOTE | 2016-05-11 12:54 | Discharge Summary ---
Providers - Providers Date of Admission: 05/06/16 11:01 Date of discharge: 05/11/16 Attending physician: BRIGHT MCCOLLUM Primary care physician: OLAMIDE PEREIRA MD Hospitalization Condition: Stable Disposition: DISCHARGED TO HOME OR SELFCARE Time spent for discharge: 35 min Exam - Constitutional Vitals: Temp Pulse Resp BP Pulse Ox 98.7 F 98 H 20 132/80 97 05/11/16 08:57 05/11/16 08:57 05/11/16 08:57 05/11/16 08:57 05/11/16 08:57 Plan Activity: advance as tolerated Diet: low cholesterol, low salt Follow up with: PRIMARY CARE, [Primary Care Provider] - 3-5 Days Prescriptions: Ferrous Sulfate [Feosol 325 MG tab] 325 mg PO BID #60 tablet Levofloxacin [Levaquin TAB] 750 mg PO Q24HR #7 tablet amLODIPine [Norvasc] 5 mg PO DAILY #30 tablet
[2016-05-11 13:51] VITALS: BP 130/73
== END 2016-05-11 14:37 | disposition home or self-care (01) | DRG 871 ==
LOC: ED 20:17 → 3A 05-06 11:01
PROVIDERS: ADMIT Internal Medicine; ATTEND Internal Medicine
DX: A41.9 Sepsis, unspecified organism (principal); J18.9 Pneumonia, unspecified organism; I10 Essential (primary) hypertension; E11.9 Type 2 diabetes mellitus without complications; Z79.899 Other long term (current) drug therapy; Z82.49 Family history of ischemic heart disease and other diseases of the circulatory system
CPT/HCPCS: 36415; 71020; 80048; 80053; 82140; 82962; 83036; 83540; 83735; 85007; 85025; 87040; 87086; 87400; 90686; 90732; 93005; 93010; J1650; J1815; J1956; J2543

== ENCOUNTER 2016-06-08 00:28 | Emergency (ER) | payer MEDICARE, OTHER ==
[2016-06-08 01:22] LABS: BUN/Creatinine Ratio 14.28; Blood Urea Nitrogen 20 mg/dL (9-20); Calcium 9.4 mg/dL (8.4-10.2); Carbon Dioxide 16 mmol/L (22-30); Chloride 96.7 mmol/L (98-107); Glucose 105 mg/dL (75-100); Potassium 4.9 mmol/L (3.6-5.0); Sodium 139 mmol/L (137-145)
[2016-06-08 01:35] LABS: Anion Gap 31 mmol/L
[2016-06-08 02:13] LABS: Basophils % (Auto) 0.4 % (0.0-1.8); Eosinophils % (Auto) 0.1 % (0.0-4.3); Hematocrit 38.2 % (35.5-45.6); Hemoglobin 11.9 gm/dl (11.8-15.2); Mean Corpuscular HGB Conc 31 % (32-34); Mean Corpuscular Hemoglobin 27 pg (28-32); Mean Corpuscular Volume 85 fl (84-94); Platelet Count 267 K/mm3 (140-440); Red Blood Count 4.48 M/mm3 (3.65-5.03); Red Cell Distribution Width 18.2 % (13.2-15.2)
[2016-06-08] MEDS ORDERED: ZOFRAN PO ONE (02:47)
--- NOTE | 2016-06-08 02:51 | Emergency Department Report ---
ED Shortness of Breath HPI - General Chief Complaint: Dyspnea/Respdistress Stated Complaint: FEET SWELLING,VOMITING Time Seen by Provider: 06/08/16 02:34 Source: patient Mode of arrival: Ambulatory Limitations: No Limitations - History of Present Illness Initial Comments: This is a very pleasant gentleman who reports over the past 2 days he's had increased swelling of his lower extremities. He reports a slight amount of swelling chronically but states he's had a significant increase over the last 2 days. He also endorses some mild dyspnea specifically on lying down and with exertion. He reports as being unchanged from when he was in the hospital one month ago. Eyes any chest pain at this time states that he is kept up with his normal activities today. He reports normal urination. Onset/Timin -: Gradual, days(s) Radiation: other (lower extremities) Severity: mild Pain Scale: 2 Quality: dull Consistency: constant Improves With: nothing Worsens With: nothing Known History Of: congestive heart failure Associated Symptoms: other (pedal edema) - Related Data Home Medications Medication Instructions Recorded Confirmed Last Taken Glimepiride [Amaryl] 1 mg PO QAM 03/26/16 05/06/16 Unknown Previous Rx's Medication Instructions Recorded Last Taken Type Omeprazole Magnesium [PriLOSEC Otc] 20 mg PO BID #20 tab 04/05/16 Unknown Rx traMADol [Ultram 50 MG tab] 50 mg PO Q6HR PRN #20 tablet 04/05/16 Unknown Rx Ferrous Sulfate [Feosol 325 MG tab] 325 mg PO BID #60 tablet 05/11/16 Unknown Rx Levofloxacin [Levaquin TAB] 750 mg PO Q24HR #7 tablet 05/11/16 Unknown Rx amLODIPine [Norvasc] 5 mg PO DAILY #30 tablet 05/11/16 Unknown Rx Furosemide [Lasix TAB] 40 mg PO QDAY #30 tablet 06/08/16 Unknown Rx Potassium Chloride [K-Dur] 2 tab PO QDAY #60 tablet 06/08/16 Unknown Rx Allergies Allergy/AdvReac Type Severity Reaction Status Date / Time No Known Allergies Allergy Verified 03/26/16 11:53 ED Review of Systems ROS: Stated complaint: FEET SWELLING,VOMITING Other details as noted in HPI Constitutional: denies: chills, fever Eyes: denies: eye pain, eye discharge, vision change ENT: denies: ear pain, throat pain Respiratory: orthopnea, SOB with exertion. denies: cough, wheezing Cardiovascular: denies: chest pain, palpitations Endocrine: no symptoms reported Gastrointestinal: denies: abdominal pain, nausea, diarrhea Genitourinary: denies: urgency, dysuria Musculoskeletal: other (leg swelling). denies: back pain, joint swelling, arthralgia Skin: denies: rash, lesions Neurological: denies: headache, weakness, paresthesias Psychiatric: denies: anxiety, depression Hematological/Lymphatic: denies: easy bleeding, easy bruising ED Past Medical Hx - Past Medical History Previous Medical History?: Yes Hx Hypertension: Yes Hx Diabetes: Yes Hx Arthritis: No - Surgical History Past Surgical History?: No - Social History Smoking Status: Never Smoker - Medications Home Medications: Home Medications Medication Instructions Recorded Confirmed Last Taken Type Glimepiride [Amaryl] 1 mg PO QAM 03/26/16 05/06/16 Unknown History Omeprazole Magnesium [PriLOSEC Otc] 20 mg PO BID #20 tab 04/05/16 05/06/16 Unknown Rx traMADol [Ultram 50 MG tab] 50 mg PO Q6HR PRN #20 tablet 04/05/16 05/06/16 Unknown Rx Ferrous Sulfate [Feosol 325 MG tab] 325 mg PO BID #60 tablet 05/11/16 Unknown Rx Levofloxacin [Levaquin TAB] 750 mg PO Q24HR #7 tablet 05/11/16 Unknown Rx amLODIPine [Norvasc] 5 mg PO DAILY #30 tablet 05/11/16 Unknown Rx Furosemide [Lasix TAB] 40 mg PO QDAY #30 tablet 06/08/16 Unknown Rx Potassium Chloride [K-Dur] 2 tab PO QDAY #60 tablet 06/08/16 Unknown Rx ED Physical Exam - General Limitations: No Limitations General appearance: alert, in no apparent distress - Head Head exam: Present: atraumatic, normocephalic - Eye Eye exam: Present: normal appearance - ENT ENT exam: Present: normal orophraynx, mucous membranes moist, other (no jvd) - Neck Neck exam: Present: normal inspection - Respiratory Respiratory exam: Present: rales (bibasilarly), decreased breath sounds (mild). Absent: respiratory distress - Cardiovascular Cardiovascular Exam: Present: regular rate, normal rhythm, systolic murmur ( holosystolic and somewhat harsh). Absent: diastolic murmur, rubs, gallop - GI/Abdominal GI/Abdominal exam: Present: soft, normal bowel sounds - Rectal Rectal exam: Present: deferred - Extremities Exam Extremities exam: Present: normal inspection, pedal edema (1+ Bilat. Equal distal pedal pulses bilat). Absent: calf tenderness - Back Exam Back exam: Present: normal inspection - Neurological Exam Neurological exam: Present: alert, oriented X3 - Psychiatric Psychiatric exam: Present: normal affect, normal mood - Skin Skin exam: Present: warm, dry, intact, normal color. Absent: rash ED Course Vital Signs 06/08/16 06/08/16 00:32 04:39 Temperature 97.8 F 98.6 F Pulse Rate 95 H 66 Respiratory 20 18 Rate Blood Pressure 155/110 Blood Pressure 152/89 [Left] O2 Sat by Pulse 100 99 Oximetry - Reevaluation(s) Reevaluation #1: 06/08/16 06:44 ECG demonstrates sinus rhythm nonspecific ST-T wave abnormalities are noted. Changes are associated with these. No ectopy. Labs are noted. Patient is noted to have a very high BNP. This does correlate with his pedal edema as well as dyspnea I suspect he does have a component of systolic congestive heart failure. Does not appear to be decompensated to me at this point though. He is saturating 9798% on room air. His heart rate is normal. He appears quite comfortable in general. On chest x-ray does have some mild vascular congestion. Interestingly there is no significant cardiomegaly. I was intrigued by the patient's harsh systolic murmur. I did have a long conversation with him regarding this and I did try to sleep through the records. I could not find prior echocardiogram nor could I find prior documentation demonstrating the murmur. Patient states that it's a family trait and that it has been documented before and he did not seem to be very concerned about it. I likewise expressed my concern with the patient's troponin being elevated. I do not want to call him and an NSTEMI given no chest pain and no concerning symptoms otherwise. I did express my current concern however. She again is fairly nonchalant towards this. He states he is happy to follow up with his radiologist over the next couple of days but does not want to stay in the hospital tonight. I did emphasize that there was a possibility of possible decompensation or if he goes home. He appears quite well in general here his vital signs are normal. I don't have a suspicion of something acutely that will happen. I Did not require him to sign AMA form. It is unclear to me why the patient was not started on Lasix on his last visit. There seemed to be suspicion of it being more infectious last time. This may be the case but there does appear to be a continued ongoing issue with some mild fluid retention. I will start the patient on Lasix today. He again agrees to follow up with his crm developer within the next 2 days for further evaluation. It is entirely possible the elevated troponin is solely due to chronic leak from atrial retching. It is also quite plausible that the murmur could be old from an ASD. I am just bothered by the fact that they are all coming in concert here tonight.. ED Medical Decision Making - Lab Data Result diagrams: 06/08/16 00:52 06/08/16 00:52 - Radiology Data interpreted by me: Mild bibasilar vascular congestion. With mild atelectasis. Normal cardiac silhouette. No mediastinal widening. Critical care attestation.: If time is entered above; I have spent that time in minutes in the direct care of this critically ill patient, excluding procedure time. ED Disposition Clinical Impression: Pedal edema, Nausea, Renal insufficiency Disposition: DISCHARGED TO HOME OR SELFCARE Is pt being admited?: No Does the pt Need Aspirin: No Condition: Stable Instructions: Heart Failure (ED) Additional Instructions: It is very important that you follow up with her crm developer this week. Return to the ED if you have chest pain or worsening symptoms. Make sure you take potassium when you take Lasix. Prescriptions: Furosemide [Lasix TAB] 40 mg PO QDAY #30 tablet Potassium Chloride [K-Dur] 2 tab PO QDAY #60 tablet Referrals: PRIMARY CARE, [Primary Care Provider] - 3-5 Days Time of Disposition: 02:49
[2016-06-08 03:00] LABS: Cholesterol 163 mg/dL (50-199); HDL Cholesterol 48 mg/dL (40-59); LDL Cholesterol,Direct 96 mg/dL (50-130); Triglycerides 97 mg/dL (2-149)
[2016-06-08 04:55] VITALS: BP 152/89
--- NOTE | 2016-06-08 08:25 | XRay Report ---
CHEST X-RAY, TWO VIEWS HISTORY: Shortness of breath. FINDINGS: Mild cardiomegaly, mild pulmonary venous congestion, small right pleural effusion and trace left pleural effusion are identified. Vascular congestion appears slightly worse when comparing to 05/05/16 exam. No obvious infiltrate. No pneumothorax. The thoracic cage is intact. IMPRESSION: Mild CHF.
== END 2016-06-08 04:39 | disposition home or self-care (01) ==
LOC: ED 00:28
DX: R60.0 Localized edema (principal); N28.9 Disorder of kidney and ureter, unspecified; I50.9 Heart failure, unspecified; E11.9 Type 2 diabetes mellitus without complications; I10 Essential (primary) hypertension; Z79.899 Other long term (current) drug therapy
CPT/HCPCS: 36415; 71020; 80048; 80061; 83880; 84484; 85025; 93005; 93010; Q0162